=== PATIENT | female | born 1940 | race Caucasian/White ===

== ENCOUNTER → 2020-09-07 | Outpatient (CLI) | payer MEDICARE | END | disposition home or self-care (01) | LOC: SHCH 07:50 | PROVIDERS: ATTEND Internal Medicine Cardiovascular Disease | DX: R94.31 Abnormal electrocardiogram [ECG] [EKG] (principal) | CPT/HCPCS: 93306; 93356 ==

== ENCOUNTER → 2020-09-08 | Outpatient (CLI) | payer MEDICARE ==
[~2020-09-08] VITALS: Ht 160 cm; Wt 79.4 kg
[~2020-09-08] MED LIST: REGADENOSON 0.4 MG/5 ML PF SYG IVP SCH
== END | disposition home or self-care (01) ==
LOC: SHCH 07:54 → EDUNIT# 08:00
PROVIDERS: ATTEND Internal Medicine Cardiovascular Disease
DX: R94.31 Abnormal electrocardiogram [ECG] [EKG] (principal)
CPT/HCPCS: 78452; 93017; 96374; A9500 ×2; J2785

== ENCOUNTER → 2023-02-23 | Outpatient (CLI) | payer MEDICARE ==
[2023-02-23 12:13] LABS: HEMOGLOBIN A1C 8.7 % (4.0-6.0)
[2023-02-23 12:20] LABS: ALBUMIN 3.5 g/dL (3.5-5.0); BILIRUBIN,TOTAL 0.9 mg/dL (0.2-1.0); CREATININE 0.9 mg/dL (0.5-1.5); MAGNESIUM 1.6 mg/dL (1.80-2.40); POTASSIUM 4.2 mmol/L (3.5-5.1); TOTAL PROTEIN, SERUM 7.3 g/dL (6.0-8.3)
== END | disposition home or self-care (01) ==
LOC: LAB 10:57
PROVIDERS: ATTEND Internal Medicine Cardiovascular Disease
DX: E78.5 Hyperlipidemia, unspecified (principal); E11.9 Type 2 diabetes mellitus without complications
CPT/HCPCS: 36415; 80053; 83036; 83735; 83880

== ENCOUNTER → 2024-05-08 | Outpatient (CLI) | payer MEDICARE ==
--- NOTE | 2024-05-08 14:08 | HMCIMG ---
CT CHEST HIGH RESOLUTION (WO) REASON: SOB COMPARISON: None TECHNIQUE: Axial images are obtained from thoracic inlet through the lung bases. Additional high-resolution 1 mm sections are obtained at intervals throughout both lungs in inspiration and in expiration. FINDINGS: There is normal-appearing lung parenchyma. Interstitial pattern appears unremarkable. There are no focal infiltrates. There are no pulmonary nodules. High-resolution images also show normal findings. There is no evidence of pulmonary fibrosis. There are no blebs or bulla and there is no peripheral honeycombing. There is no bronchiectasis. There is no visible air trapping on the expiratory view. There is borderline heart size. There is no pulmonary vascular congestion. There is no pleural effusion. Hilar and mediastinal structures appear normal with the exception of some coronary artery calcification. Chest wall structures appear normal as do visualized upper abdominal structures. IMPRESSION: 1. Borderline heart size, there is also some coronary artery calcification, there is no pulmonary vascular congestion or pleural effusion. 2. Otherwise negative high-resolution CT chest, there is normal-appearing pulmonary parenchyma.
== END | disposition home or self-care (01) ==
LOC: RAH 12:47
PROVIDERS: ATTEND Internal Medicine Cardiovascular Disease
DX: R06.02 Shortness of breath (principal); I25.10 Atherosclerotic heart disease of native coronary artery without angina pectoris
CPT/HCPCS: 71250